=== PATIENT | male | born 1990 | race Hispanic/Latino ===

== ENCOUNTER 2021-04-26 07:05 | Day surgery (SDC) | payer OTHER ==
[2021-04-26] MEDS ORDERED: NA CHLORIDE 0.9% 500 ML ONE (07:22)
[2021-04-26] MEDS ORDERED: propofoL 200 MG/20 ML VIAL IV ONE ×3 (07:34→07:59)
[2021-04-26] MEDS ORDERED: LIDOCAINE 1% MPF 5 ML VIAL ONE (07:34)
[2021-04-26] MEDS ORDERED: Phenylephrine HCl 10 MG/ML 1 ML VIAL ONE (07:35)
[2021-04-26] MEDS ORDERED: NS 0.9% VIAL 10 ML ONE (07:35)
--- NOTE | 2021-04-26 08:23 | ENDO RPT ---
[address], [address] COLONOSCOPY PROCEDURE REPORT EXAM DATE: 04/26/2021 PATIENT NAME: Yunior Hannah MR #: [id number] BIRTHDATE: 1990 ATTENDING: [address] STATUS: outpatient ELECTION JUDGE: Marjorie Toledo RN and Charissa De INDICATIONS: The patient is a 30 yr old Male here for a colonoscopy due to hematochezia, change in bowel habits, and constipation PROCEDURE PERFORMED: Colonoscopy MEDICATIONS: Per Anesthesia. ESTIMATED BLOOD LOSS: None CONSENT: The patient understands the risks and benefits of the procedure and understands that these risks include, but are not limited to: sedation, allergic reaction, infection, perforation and/or bleeding. Alternative means of evaluation and treatment include, among others: physical exam, x-rays, and/or surgical intervention. The patient elects to proceed with this endoscopic procedure. DESCRIPTION OF PROCEDURE: During intra-op preparation period all mechanical medical equipment was checked for proper function. Hand hygiene and appropriate measures for infection prevention was taken. Procedure, possible complications, alternatives including, but not limited to possibility of bleeding, perforation, tear, infection, sepsis, need for surgery, need for blood transfusion, were explained to the patient. After the risks, benefits and alternatives of the procedure were thoroughly explained, Informed consent was verified, confirmed and timeout was successfully executed by the treatment team. The patient was placed in the left lateral position. A digital rectal exam was performed and revealed a rash. After appropriate level of anesthesia, the scope was passed. The EC-[id number] ([id number]) endoscope was introduced through the anus and advanced to the cecum, which was identified by both the appendix and ileocecal valve. The quality of the prep was poor. The instrument was then slowly withdrawn as the colon was fully examined. Scope withdrawal time was 8 minutes. COLON FINDINGS: Trauma secondary to recent hemorrhoid banding was found in the distal rectum, near the dentate line. Poor prep, BBPS 5, was noted throughout the colon with large pieces of fibrous plant material clogging colonoscope. Moderate sized internal hemorrhoids were found. Retroflexed views revealed medium hemorrhoids. The scope was then completely withdrawn from the patient and the procedure terminated. ADVERSE EVENTS: There were no complications. IMPRESSIONS: 1. Trauma secondary to recent hemorrhoid banding in the distal rectum, near dentate line 2. Poor prep, BBPS 5, with large pieces of fibrous plant material clogging colonoscope 3. Moderate sized internal hemorrhoids RECOMMENDATIONS: 1. hemorrhoidal hygiene 2. fiber rich diet RECALL: for Colonoscopy at 46 [address] eSigned: [address] 04/26/2021 8:22 AM cc: Jose Licona CPT CODES: ICD9 CODES: PATIENT NAME: Yunior Hannah MR#: [id number]
[2021-04-26 09:10] VITALS: TEMP 97
[2021-04-26 09:12] VITALS: BP 127/73; O2SAT 99
== END 2021-04-26 09:03 | disposition home or self-care (01) ==
LOC: OR 07:05
PROVIDERS: ATTEND Internal Medicine Gastroenterology
PROC: 0DJD8ZZ Inspection of Lower Intestinal Tract, Via Natural or Artificial Opening Endoscopic (ICD-10-PCS; principal; 2021-04-26 07:30)
DX: K92.1 Melena (principal); K59.00 Constipation, unspecified; K64.8 Other hemorrhoids
CPT/HCPCS: 45378; U0003; J2704 ×2; J2370; J7040